=== PATIENT | female | born 1965 | race African-American/Black ===

== ENCOUNTER 2019-11-25 15:40 | Outpatient (CLI) | payer OTHER, SELFPAY ==
--- NOTE | ~2019-11-25 | CT_ITS ---
EXAMINATION: CT brain wo/w con EXAM DATE: 11/25/2019 16:34 INDICATION: Lump of scalp. History breast cancer. TECHNIQUE: Spiral CT of the head was performed without contrast. Axial, coronal and sagittal images were reviewed. The dose-length product (DLP) for this examination was 1059.33 mGy-cm. The exposure was tailored according to patient size, and iterative reconstruction (ASIR) was used as additional do se reduction technique. There is no prior study for comparison. FINDINGS: There is small cystic extra-axial space overlying the right frontal lobe laterally, a benig n finding such as arachnoid cyst or possibly nodular calcified stage of quiescent neurocysticercosis. Adjacent brain parenchyma has normal appearance. There are no areas of abnormal enhancement on the p ost contrast images. There is no acute intraparenchymal hemorrhage. No evidence of intraparenchymal brain mass lesion. No evidence of acute infarction. There is no mass effect or midline shift. The ventricles are normal in size. There are no extra-axial collections. There are no acute calvarial fractures. The orbits are unremarkable. Soft tissue, scalp is unremarkable. The visualized sinuses and mastoid air cells are well aerated. IMPRESSION: 1. Incidental small benign extra-axial cystic lesion. 2. No scalp mass or evidence of metastatic disease. Reviewed, dictated and finalized at location A.
[2019-11-25 16:21] LABS: Estimated Glomerular Filt Rate 47
== END 2019-11-25 15:41 | disposition home or self-care (01) ==
PROVIDERS: PCP Family Medicine; Visit Provider Internal Medicine
DX: C50.411 Malignant neoplasm of upper-outer quadrant of right female breast (principal); Z17.0 Estrogen receptor positive status [ER+]; R22.0 Localized swelling, mass and lump, head
CPT/HCPCS: 36415; 70470; Q9967

== ENCOUNTER 2020-05-11 11:32 | Outpatient (CLI) | payer OTHER, SELFPAY ==
--- NOTE | ~2020-05-11 | MM_ITS ---
EXAMINATION: MM diagnostic brad LT w jeannie HISTORY: No current complaints or physical findings reported. Status post left partial mastectomy for left breast cancer. Status post right complete mastectomy for right breast cancer. TECHNIQUE: ML, MLO and craniocaudal 3-D tomosynthesis images of the left breast were performed and sy nthetic 2-D images were generated. CAD analysis was submitted and interpreted. COMPARISON: 05/09/2019, 04/16/2018, 04/16/2017 left digital mammogram examinations BREAST PARENCHYMAL COMPOSITION: The breasts are heterogeneously dense, which may obscure small masses . FINDINGS: Stable architectural distortion and retraction post left partial mastectomy for breast canc er. No interval suspicious mass or new architectural distortion or new retraction is evident. No malignan t calcification. IMPRESSION: 1. Status post left partial mastectomy for breast cancer; no significant change since 04/16/2017 2. Routine mammographic screening follow-up is recommended. BI-RADS Category 2: Benign finding(s). Reviewed, dictated and finalized at location A. 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
--- NOTE | ~2020-05-11 | US_ITS ---
US breast RT complete DATE: 05/11/2020 12:41 INDICATION: Status post right complete mastectomy for right breast cancer TECHNIQUE: High-resolution ultrasound imaging of the right breast COMPARISON: 05/09/2019, 04/16/2018, 04/08/2017 complete right breast ultrasound examination FINDINGS: Right breast implant is noted. No suspicious mass or shadowing is evident. IMPRESSION: BI-RADS Category 1: Negative Reviewed, dictated and finalized at Location A. Reviewed, dictated and finalized at location A. TO PICKER
== END 2020-05-11 11:33 | disposition home or self-care (01) ==
LOC: ANHIMG 11:34
PROVIDERS: Family Provider Surgery; PCP Family Medicine; Visit Provider Internal Medicine
DX: Z12.31 Encounter for screening mammogram for malignant neoplasm of breast (principal); Z85.3 Personal history of malignant neoplasm of breast; Z87.898 Personal history of other specified conditions; C50.411 Malignant neoplasm of upper-outer quadrant of right female breast; Z17.0 Estrogen receptor positive status [ER+]
CPT/HCPCS: 76641; 77061; 77065; G0279

== ENCOUNTER 2020-08-29 17:07 | Outpatient (CLI) | payer OTHER, SELFPAY ==
--- NOTE | ~2020-08-29 | US_ITS ---
EXAMINATION: US thyroid DATE: 08/29/2020 17:39 INDICATION: Palpable thyroid nodule. TECHNIQUE: Multiple ultrasound images of the thyroid were obtained. COMPARISON: None. FINDINGS: The right thyroid lobe measures 5.0 x 1.0 x 1.3 cm. The left thyroid lobe measures 5.4 x 1.2 x 1.8 c m. There is normal echotexture and echogenicity throughout the thyroid gland. No discrete nodules id entified. Normal vascular flow is present. IMPRESSION: 1. Normal thyroid. Reviewed, dictated and finalized at location B. IMPRESSION: 1. Normal thyroid.
== END 2020-08-29 17:08 | disposition home or self-care (01) ==
PROVIDERS: PCP Family Medicine
DX: C50.411 Malignant neoplasm of upper-outer quadrant of right female breast (principal); Z17.0 Estrogen receptor positive status [ER+]
CPT/HCPCS: 76536

== ENCOUNTER 2020-10-11 15:15 | Outpatient (RCR) | payer OTHER, SELFPAY ==
--- NOTE | 2020-09-19 14:38 | PTOPEVAL ---
PHYSICAL THERAPY EVALUATION AND PLAN OF CARE 09-19-20 Thank you for referring Emmett Gu to [facility], for the diagnosis of lymphedema.? She is scheduled to be seen for therapy? 2 x/week for 3 weeks. Please review, sign, date and return this plan of care ANGELA. I agree with and certify that the following plan of care is medically necessary. 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 Activity of Daily Living Ability Independent Indoor/Home Mobility Independent Community Mobility Independent Stairs Ability Independent Functional Cognition (Planning, Shopping Independent , Taking Medications) Cooking Yes Cleaning Yes Laundry Yes Shopping Yes Driving Yes Home Setting Mobility Assistive Devices (Used Last 3 None Months) Comments Additional Prior Level of Function working from home now; Comments computer set up was not good- have changed and better work station; Pain Assessment Timing of Pain Assessment Timing of Pain Assessment Assessment Self Report Self Report Pain Level 0 Pain Score Pain Score 0: Self Report Upper Extremity Range of Motion General Upper Extremity Range of Motion Reason Not Measured WNL/Left,WNL/Right Gross Upper Extremity Range of Motion no pain with active R or L Comments shoulder, elbow, wrist- ranges WNL; cervical active ROM WNL and no pain Lymphedema Evaluation Lymphedema Evaluation Lymphedema History Cancer,Secondary Lympedemea History Comments gradual increase in R arm swelling in April after working from home, computer set up not ergonomically correct and not sitting upright; and was sleeping on her R side; she has i
--- NOTE | 2020-10-09 13:50 | PCPTNOTE ---
Pt. no showed, no call for todays' appt. called and left a massage on voice mail to remind pt of next appt on at 3:15.
--- NOTE | 2020-10-09 15:22 | PCPTNOTE ---
addendum to note today. pt was here and was not called until 25 minutes after appt. Pt stated she arrived at 1:37. pt received 40 min treatment. I apologized for the mistake. .
--- NOTE | 2020-10-11 15:50 | PTOPEVAL ---
PHYSICAL THERAPY DISCHARGE 10-11-20 Refer to the clinical summary below, for her status with today's discharge. The PT goals were achieved; she will be discharged at this time. Thank you for referring Emmett Gu to [facility].? Please review, sign, date and return this Discharge ANGELA. I agree with and certify that the following plan of care is medically necessary. Referring Physician Date Attending Provider: Syed Jin MD, PhD Document 10/11/20 15:15 SOLIS (Rec: 10/11/20 15:50 SOLIS [id number]) Assessment Status Discharge Subjective Information Emmett reports: swelling is Query Text:As Reported By Patient/ less, not pulling down on R Family side of shirt as much; chest is more comfortable and not as tight; using swell pad and compression bra; doing my massage every day in the shower and doing OK with it; Pain Assessment Timing of Pain Assessment Timing of Pain Assessment Assessment Self Report Self Report Pain Level 0 Pain Score Pain Score 0: Self Report Upper Extremity Range of Motion General Upper Extremity Range of Motion Gross Upper Extremity Range of Motion active ROM of shoulders and Comments trunk WNL and without any pain or tightness reported; Lymphedema Evaluation Skin Inspection Location Left Breast,Left Anterior Lower Quadrant,Left Anterior Upper Quadrant,Left Posterior Lower Quadrant,Left Posterior Upper Quadrant,Right Breast, Right Anterior Lower Quadrant, Right Anterior Upper Quadrant, Right Posterior Lower Quadrant ,Right Posterior Upper Quadrant Lymphedema Stage II Skin Inspection Comment in standing: minimal visible edema over R upper-lateral trunk; no edema over R or L UE palpation: R side: port site without adhesions distal to incision; axilla without any adhesions; minimal adhesions over upper -lateral trunk; no adhesions over lateral aspect of horizontal scar; no tenderness reported; L side: no tenderness or fibrosis over pec or node excision site; some fibrosis
== END 2020-10-12 08:13 | disposition home or self-care (01) ==
LOC: ANHPT 15:15
PROVIDERS: PCP Family Medicine
DX: I89.0 Lymphedema, not elsewhere classified (principal); C50.411 Malignant neoplasm of upper-outer quadrant of right female breast; Z17.0 Estrogen receptor positive status [ER+]; Z90.11 Acquired absence of right breast and nipple
CPT/HCPCS: 97140; 97161

== ENCOUNTER 2021-05-13 10:40 | Outpatient (CLI) | payer BC, SELFPAY ==
--- NOTE | ~2021-05-13 | MM_ITS ---
EXAMINATION: MM screening brad LT w jeannie HISTORY: Screening left mammogram, history of right mastectomy TECHNIQUE: Craniocaudal and mediolateral oblique 3-D tomosynthesis images were obtained and synthetic 2-D images were generated. CAD analysis was submitted and interpreted. COMPARISON: 05/11/2020, 05/09/2019, 04/16/2018 BREAST PARENCHYMAL COMPOSITION: The breasts are heterogeneously dense, which may obscure small masses . FINDINGS: There are stable lumpectomy changes in the left breast. There is no evidence of suspicious mass, calcification, or architectural distortion to suggest malignancy. There has been no suspicious interval change. IMPRESSION: 1. No mammographic evidence of malignancy. 2. Recommend routine screening mammography in one year. BI-RADS Category 2: Benign finding(s). Reviewed, dictated and finalized at location A. 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
--- NOTE | ~2021-05-13 | US_ITS ---
EXAMINATION: US breast RT complete HISTORY: Patient with history of right mastectomy with implant reconstruction presents for right m[address] [facility] screening ultrasound TECHNIQUE: Complete right breast ultrasound is performed. COMPARISON: 05/11/2020, 05/09/2019 FINDINGS: No suspicious cystic or solid sonographically detected masses identified in the right breas t. IMPRESSION: No sonographic evidence of malignancy. BI-RADS Category 1: Negative Reviewed, dictated and finalized at location A. 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
== END 2021-05-13 10:41 | disposition home or self-care (01) ==
PROVIDERS: PCP Family Medicine
DX: Z12.31 Encounter for screening mammogram for malignant neoplasm of breast (principal); Z90.11 Acquired absence of right breast and nipple
CPT/HCPCS: 76641; 77063; 77067

== ENCOUNTER 2021-07-31 12:43 | Outpatient (CLI) | payer BC, SELFPAY ==
--- NOTE | ~2021-07-31 | DEXA_ITS ---
Bone Density Report Name: YESICA CORDOVA Age: 55 Sex: Female Ethnicity: Black Date of : 1965 Indication: postmenopausal; screening for osteoporosis; cancer; Referring Provider: RAYMUNDO GUTIERREZ NP Study: Bone densitometry was performed. Exam Date: July 31, 2021 Accession number: [id number] Bone Density: Region BMD T-score Z-score Classification AP Spine(L1, L2, L3) 0.957 -0.6 -0.1 Normal Femoral Neck (Left) 0.692 -1.4 -0.9 Osteopenia Total Hip (Left) 0.909 -0.3 -0.1 Normal Femoral Neck (Right) 0.668 -1.6 -1.1 Osteopenia Total Hip (Right) 0.881 -0.5 -0.3 Normal Total Hip Mean 0.895 -0.4 -0.2 Normal World Health Organization criteria for BMD impression classify patients as: Normal (T-score at or above -1.0), Osteopenia (T-score between -1.0 and -2.5), or Osteoporosis (T-score at or below -2.5). 10-year Fracture Risk(1): Major Osteoporotic Fracture 3.4% Hip Fracture 0.3% Reported Risk Factors: [place] (Black), Neck BMD=0.668, BMI=26.9 (1) FRAX(R) Version 3.08. Fracture probability calculated for an untreated patient. Fracture probability may be lower if the patient has received treatment. Previous Exams: Region Exam Age BMD T-score BMD Change BMD Change Date g/cm2 vs Baseline vs Previous AP Spine(L1, L2, L3) 07/31/2021 55 0.957 -0.6 -0.008(-0.8%) -0.008(-0.8%) 12/22/2017 52 0.965 -0.5 Total Hip(Left) 07/31/2021 55 0.909 -0.3 -0.006(-0.7%) -0.006(-0.7%) 12/22/2017 52 0.915 -0.2 Total Hip(Right) 07/31/2021 55 0.881 -0.5 -0.026(-2.9%) -0.026(-2.9%) 12/22/2017 52 0.907 -0.3 *Denotes significance at 95% confidence level, LSC for AP Spine = 0.022 g/cm2, LSC for Total Hip = 0.027 g/cm2 Clinical Information Provided by Patient: Has used the following medications: Vitamin D Has the following medical conditions: Cancer Patient maximum height was 62 Menopause Age: 49 No regular weight bearing exercise Onset of menses at age 12 Number of children 0 Impression: The patient has low bone mass, based on the Right Femoral Neck T-score. The patient has an estimated ten-year risk of hip fracture of 0.3% and an estimated ten-year risk of major fracture of 3.4%, based on the WHO FRAX algorithm. No significant bone loss was observed. Discussion: BONE DENSITY IS LOW AT ONE OR MORE SKELETAL SITES. This patient's lowest T-score is low at one or more skeletal sites. It meets the World Health Organization's (WHO)
== END 2021-07-31 12:44 | disposition home or self-care (01) ==
LOC: ANHIMG 12:46
PROVIDERS: PCP Family Medicine
DX: Z78.0 Asymptomatic menopausal state (principal); M85.89 Other specified disorders of bone density and structure, multiple sites
CPT/HCPCS: 77080

== ENCOUNTER 2022-03-17 00:50 | Day surgery (SDC) | payer BC, SELFPAY ==
[2022-03-07 14:10] VITALS: BMI 27.0
--- NOTE | 2022-03-17 10:38 | WPDANESEPPF ---
Anes - Initial Pre Proc Eval Procedure: Operation Date: 03/17/22 14:45 Proposed Procedures p Screening Colonoscopy - Kristopher Galindo MD Date/Time: 03/17/22 10:38 Surgeon: Kristopher Galindo MD Pre Op Diagnosis: neoplasm screening, fam hx colon ca Patient Data Age: 56 Gender: F Height: 1.57 m Weight: 67 kg Allergies Allergy/AdvReac Type Severity Reaction Status Date / Time cetirizine Allergy Unknown Hives Verified 03/17/22 13:11 hydroxyzine Allergy Unknown Hives Verified 03/17/22 13:11 Iodinated Contrast Media Allergy Unknown Hives Verified 03/17/22 13:11 iodine Allergy Unknown Hives Verified 03/17/22 13:11 ranitidine Allergy Unknown Hives Verified 03/17/22 13:11 codeine AdvReac Unknown hallucinati Verified 03/17/22 13:11 on hydrocodone AdvReac Unknown Hallucinati Verified 03/17/22 13:11 ng morphine AdvReac Unknown Hallucinati Verified 03/17/22 13:11 ng Home Medications Medication Instructions Recorded Confirmed Type anastrozole 1 mg tablet 1 mg PO DAILY 04/07/19 03/17/22 History cholecalciferol (vitamin D3) 25 25 mcg PO DAILY 05/07/20 03/17/22 History mcg (1,000 unit) capsule omega 3-dha 120 mg-epa 180 mg-fish 1 cap PO DAILY 05/07/20 03/17/22 History oil 600 mg capsule ([place]reme [place]-3) amlodipine 10 mg tablet 10 mg PO DAILY #90 tabs 12/31/21 03/17/22 Rx multivitamin with minerals-folic 1 tablet PO DAILY 03/07/22 03/17/22 History acid 0.4 mg tablet Patient hx anesthesia problems: none Family hx anesthesia problems: none Results Review: All pre-operative results and documents have been reviewed as part of the pre-operative evaluation. [facility] Past Medical History Medical History Essential (primary) hypertension History of breast cancer Surgical History Surgical History H/O foot surgery H/O right mastectomy History of breast reconstruction Status post left breast lumpectomy Family History Family History Father Carcinoma of colon Prediabetes Mother Mixed hyperlipidemia Grandparent Acute myocardial infarction Other Cerebrovascular accident Diabetes mellitus Family history of allergic disorder Family history of cardiovascular disease Family history of lung cancer Hypertension Social History Social History Social History: Single Smoking status: Never smoker Second hand tobacco smoke exposure: No Alcohol intake: current Alcohol use details: 2 drinks monthly Substance use: never Substance use type: does not use Living arrangements: alone Gender identity (if verbalized by the patient): Female Sexual Orientation (if Verbalized by the Patient): Straight or Heterosexual Spiritual care concerns: No Anes - Eval Final PreProcedure Day of Procedure 03/17/22 10:38 Patient weight: obese Heart: regular rate and rhythm Lungs: clear to auscultation and normal air movement Airway: Mallampati scale class II Neurological: alert and oriented Last oral intake: >/= 8 hours ASA classification: III Emergent: no Anesthetic plan: proceed Anesthesia type and monitoring: general GIVS Results Review: All pre-operative results and documents have been reviewed as part of the pre-operative evaluation. Informed Consent: The patient's anesthetic plan and its attendant risks and benefits were discussed with the patient/family/POA. Questions were solicited and answers provided to the satisfaction of the patient/family/POA.
[2022-03-17 13:14] VITALS: BP 136/81; PULSE 86; RESP 16; TEMP 36.7; O2SAT 98
--- NOTE | 2022-03-17 13:21 | PM.HPGS ---
History of Present Illness History of Present Illness Consent: Risks, benefits, and alternatives have been discussed and questions answered. Patient agrees to proceed with procedure. Chief complaint: neoplasm screening, fam hx colon ca Narrative: Emmett Gu is a 56 year old female Referred for colon cancer screening. She has a family history of colon cancer. Her father had colon cancer. Review of Systems Review of Systems: All systems reviewed & are unremarkable except as noted in HPI and below PMFSH Past Medical History Medical History Essential (primary) hypertension History of breast cancer Surgical History Surgical History H/O foot surgery H/O right mastectomy History of breast reconstruction Status post left breast lumpectomy Family History Family History Father Carcinoma of colon Prediabetes Mother Mixed hyperlipidemia Grandparent Acute myocardial infarction Other Cerebrovascular accident Diabetes mellitus Family history of allergic disorder Family history of cardiovascular disease Family history of lung cancer Hypertension Social History Social History Social History: Single Smoking status: Never smoker Second hand tobacco smoke exposure: No Alcohol intake: current Alcohol use details: 2 drinks monthly Substance use: never Substance use type: does not use Living arrangements: alone Gender identity (if verbalized by the patient): Female Sexual Orientation (if Verbalized by the Patient): Straight or Heterosexual Spiritual care concerns: No Meds Home Medications and Allergies Home Medications Medication Instructions Recorded Confirmed Type anastrozole 1 mg tablet 1 mg PO DAILY 04/07/19 03/17/22 History cholecalciferol (vitamin D3) 25 25 mcg PO DAILY 05/07/20 03/17/22 History mcg (1,000 unit) capsule omega 3-dha 120 mg-epa 180 mg-fish 1 cap PO DAILY 05/07/20 03/17/22 History oil 600 mg capsule (Extreme [place]-3) amlodipine 10 mg tablet 10 mg PO DAILY #90 tabs 12/31/21 03/17/22 Rx multivitamin with minerals-folic 1 tablet PO DAILY 03/07/22 03/17/22 History acid 0.4 mg tablet Allergies Allergy/AdvReac Type Severity Reaction Status Date / Time cetirizine Allergy Unknown Hives Verified 03/17/22 13:11 hydroxyzine Allergy Unknown Hives Verified 03/17/22 13:11 Iodinated Contrast Media Allergy Unknown Hives Verified 03/17/22 13:11 iodine Allergy Unknown Hives Verified 03/17/22 13:11 ranitidine Allergy Unknown Hives Verified 03/17/22 13:11 codeine AdvReac Unknown hallucinati Verified 03/17/22 13:11 on hydrocodone AdvReac Unknown Hallucinati Verified 03/17/22 13:11 ng morphine AdvReac Unknown Hallucinati Verified 03/17/22 13:11 ng Vital Signs Vital Signs - 24 hr 03/17/22 13:14 Temperature 36.7 C Pulse Rate 86 Respiratory Rate 16 Blood Pressure 136/81 Pulse Oximetry 98 Oxygen Delivery Room Air Exam Const: General: alert Orientation/consciousness: patient oriented x3 Resp: Auscultation: clear to auscultation bilaterally Cardio: Rhythm: regular rhythm GI: GI Palp: Yes Soft to palpation and No Tenderness to palpation present (GI) Neuro: General: patient oriented x3 Assessment and Plan Assessment and plan (1) Colon cancer screening: Code(s): Z12.11 - Encounter for screening for malignant neoplasm of colon Status: Acute Assessment and Plan: Colonoscopy with possible biopsy or polypectomy or cautery or injection of substances.
[2022-03-17] MEDS: LACTATED RINGERS 1,000 ML 150 ML IV CONT (13:25)
[2022-03-17 14:20] VITALS: BP 104/64; PULSE 74; RESP 20; O2SAT 92
[2022-03-17 14:30] VITALS: BP 95/55; PULSE 74; RESP 15; O2SAT 99
[2022-03-17 14:40] VITALS: BP 110/68; PULSE 63; RESP 20; O2SAT 99
== END 2022-03-17 15:02 | disposition home or self-care (01) ==
PROVIDERS: PCP Family Medicine; Visit Provider Internal Medicine Gastroenterology
PROC: 0DJD8ZZ Inspection of Lower Intestinal Tract, Via Natural or Artificial Opening Endoscopic (ICD-10-PCS; CPT 45378; principal; 2022-03-17 14:45)
DX: Z12.11 Encounter for screening for malignant neoplasm of colon (principal); Z80.0 Family history of malignant neoplasm of digestive organs; I10 Essential (primary) hypertension; Z85.3 Personal history of malignant neoplasm of breast; Z79.811 Long term (current) use of aromatase inhibitors; Z90.13 Acquired absence of bilateral breasts and nipples; E66.9 Obesity, unspecified
CPT/HCPCS: 45378; J2704; J7120

== ENCOUNTER 2022-07-15 09:04 | Outpatient (CLI) | payer BC, SELFPAY ==
--- NOTE | ~2022-07-15 | MM_ITS ---
EXAMINATION: MM screening brad LT w jeannie HISTORY: Screening TECHNIQUE: Craniocaudal and mediolateral oblique 3-D tomosynthesis images were obtained and synthetic 2-D images were generated. CAD analysis was submitted and interpreted. COMPARISON: Comparison to multiple prior studies sequentially, with oldest reviewed study dated 03/21. BREAST PARENCHYMAL COMPOSITION: The breasts are heterogeneously dense, which may obscure small masses FINDINGS: There is a new focal asymmetry inferiorly in the left breast with associated architectural distortion. There are no suspicious calcifications. IMPRESSION: 1. New focal left breast asymmetry inferiorly with associated architectural distortion. 2. Additional mammographic views and possible breast ultrasound are recommended. BI-RADS Category 0: Incomplete: Needs additional imaging evaluation. Reviewed, dictated and finalized at location A. IMPRESSION: 1. New focal left breast asymmetry inferiorly with associated architectural dis tortion. 2. Additional mammographic views and possible breast ultrasound are recommended . BI-RADS Category 0: Incomplete: Needs additional imaging evaluation.
== END 2022-07-15 09:05 | disposition home or self-care (01) ==
DX: Z12.31 Encounter for screening mammogram for malignant neoplasm of breast (principal); R92.8 Other abnormal and inconclusive findings on diagnostic imaging of breast
CPT/HCPCS: 77063; 77067

== ENCOUNTER 2022-08-19 11:19 | Outpatient (CLI) | payer BC, SELFPAY ==
--- NOTE | ~2022-08-19 | MM_ITS ---
EXAMINATION: MM diagnostic brad LT w jeannie HISTORY: Left breast asymmetry on screening mammogram TECHNIQUE: Additional 3-D tomosynthesis images of the left breast were performed and synthetic 2-D im ages were generated. CAD analysis was submitted and interpreted. COMPARISON: 07/07/2022, 05/13/2021, 05/11/2020, 05/09/2019 FINDINGS: There is a return to baseline fibroglandular appearance with spot compression of the left b reast in the area questioned on screening mammogram. Stable lumpectomy changes are noted in the lower breast. No suspicious calcification is identified. IMPRESSION: 1. No mammographic evidence of malignancy. 2. Recommend routine screening mammography in one year. BI-RADS Category 2: Benign finding(s). Reviewed, dictated and finalized at location A.
== END 2022-08-19 11:20 | disposition home or self-care (01) ==
DX: R92.8 Other abnormal and inconclusive findings on diagnostic imaging of breast (principal); C50.611 Malignant neoplasm of axillary tail of right female breast; Z17.0 Estrogen receptor positive status [ER+]
CPT/HCPCS: 77061; 77065; G0279

== ENCOUNTER 2022-11-04 18:48 | Emergency (ER) | payer BC, SELFPAY ==
--- NOTE | 2022-11-04 18:51 | ED.EXTPRO ---
HPI - Extremity Problem General Chief complaint: Extremity Injury, Upper Stated complaint: left arm pain Time Seen by Provider: 11/04/22 18:51 Source: patient Mode of arrival: ambulatory Limitations: no limitations History of Present Illness HPI Narrative: Emmett is a 56-year-old female patient presenting to the clinic today with complaints of left shoulder pain times 1 day. She reports symptoms just started today. She has not taken anything for pain. States that she directed acquired over the weekend and now has anterior shoulder pain that is radiating into her upper arm. Related Data Home Medications Medication Instructions Recorded Confirmed anastrozole 1 mg tablet 1 mg PO DAILY 04/07/19 11/04/22 cholecalciferol (vitamin D3) 25 25 mcg PO DAILY 05/07/20 11/04/22 mcg (1,000 unit) capsule omega 3-dha 120 mg-epa 180 mg-fish 1 cap PO DAILY 05/07/20 11/04/22 oil 600 mg capsule (Extreme [place]-3) multivitamin with minerals-folic 1 tablet PO DAILY 03/07/22 11/04/22 acid 0.4 mg tablet Allergies Allergy/AdvReac Type Severity Reaction Status Date / Time cetirizine Allergy Unknown Hives Verified 11/04/22 19:04 hydroxyzine Allergy Unknown Hives Verified 11/04/22 19:04 Iodinated Contrast Media Allergy Unknown Hives Verified 11/04/22 19:04 iodine Allergy Unknown Hives Verified 11/04/22 19:04 ranitidine Allergy Unknown Hives Verified 11/04/22 19:04 codeine AdvReac Unknown hallucinati Verified 11/04/22 19:04 on hydrocodone AdvReac Unknown Hallucinati Verified 11/04/22 19:04 ng morphine AdvReac Unknown Hallucinati Verified 11/04/22 19:04 ng Review of Systems Review of Systems: Pertinent positives per HPI. Patient denies any fever, chills, rash, headache, visual changes, dizziness, cough, runny nose, sore throat, shortness of breath, chest pain, palpitations, nausea, vomiting, diarrhea, constipation, abdominal pain, or any urinary issues. PMF Past Medical History Medical History Essential (primary) hypertension History of breast cancer Surgical History Surgical History H/O foot surgery H/O right mastectomy History of breast reconstruction Status post left breast lumpectomy Family History Family History Father Carcinoma of colon Prediabetes Mother Mixed hyperlipidemia Grandparent Acute myocardial infarction Other Cerebrovascular accident Diabetes mellitus Family history of allergic disorder Family history of cardiovascular disease Family history of lung cancer Hypertension Social History Social History Social History: Single Smoking status: Never smoker Second hand tobacco smoke exposure: No Alcohol intake: current Alcohol use details: 2 drinks monthly Substance use: never Substance use type: does not use Living arrangements: alone Occupation/Education: retired Gender identity (if verbalized by the patient): Female Sexual Orientation (if Verbalized by the Patient): Straight or Heterosexual Spiritual care concerns: No Comments At the time of my signature, I reviewed and agree with the nursing past medical, surgical, social, and family history. There is no relevant family history pertinent to the patient complaint. Exam Narrative: General: Well-developed, well nourished, in no apparent distress Head: Normocephalic, atraumatic. Cardio: Regular rate and rhythm, s1 and s2 normal, no murmur appreciated. Resp: Clear to auscultation bilaterally, no rhonchi, rales, wheezing or rubs. Musculoskeletal: No deformity, tender to palpation over the anterior shoulder, no pain with empty can/full can testing, mild discomfort with Chavira test, no axilla lymphadenopathy, grossly normal range of motion, muscle streng
[2022-11-04 19:01] VITALS: BP 129/72; PULSE 86; RESP 16; TEMP 37.3; O2SAT 99
[2022-11-04 19:04] VITALS: BP 129/72; PULSE 86; RESP 16; TEMP 37.3; O2SAT 99
== END 2022-11-04 19:10 | disposition home or self-care (01) ==
PROVIDERS: Emergency Provider Nurse Practitioner Family; PCP Emergency Medicine
DX: M25.512 Pain in left shoulder (principal); I10 Essential (primary) hypertension; Z85.3 Personal history of malignant neoplasm of breast; Z90.13 Acquired absence of bilateral breasts and nipples
CPT/HCPCS: 99213; G0463

== ENCOUNTER 2022-12-09 15:28 | Outpatient (CLI) | payer BC, SELFPAY ==
--- NOTE | ~2022-12-09 | US_ITS ---
US breast RT complete DATE: 12/09/2022 15:54 INDICATION: Yearly screening and postmastectomy reconstructed right breast TECHNIQUE: Real-time imaging of complete right breast area COMPARISON: 05/09/2021, 05/11/2020, 05/09/2019 right complete breast ultrasound examinations FINDINGS: No suspicious mass or shadowing, cyst or other significant sonographic abnormality is detec dipak. IMPRESSION: No sonographic evidence of malignancy in this post mastectomy reconstructed right breast BI-RADS Category 1: Negative Reviewed, dictated and finalized at [facility]. Reviewed, dictated and finalized at location A. IMPRESSION: No sonographic evidence of malignancy in this post mastectomy recon structed right breast BI-RADS Category 1: Negative
== END 2022-12-09 15:29 | disposition home or self-care (01) ==
PROVIDERS: PCP Family Medicine
DX: Z98.82 Breast implant status (principal)
CPT/HCPCS: 76641

== ENCOUNTER 2023-07-13 12:27 | Outpatient (CLI) | payer BC, SELFPAY ==
--- NOTE | ~2023-07-13 | MR_ITS ---
MR breast BI wo/w con 07/15/2023 10:51 CDT INDICATION: History of estrogen receptor positive breast cancer. History of right mastectomy with jennifer icone implant. TECHNIQUE: MRI of the breasts perform using standard protocol pre-and post IV contrast with the follo wing sequences: Axial T2 STIR, axial T1, axial vibrant T1 with fat suppression precontrast and multip hasic postcontrast. 13 cc of MultiHance administered intravenously COMPARISON: Comparison to multiple prior studies sequentially, with oldest reviewed study dated 05/11. FINDINGS: There are no abnormalities on the precontrast sequences. There is a right breast implant. T here is minimal background parenchymal enhancement. No enhancing lesions following contrast administ ration. No areas of enhancement meeting threshold criteria on CAD analysis. No evidence of signal a bnormalities in the axillary or internal mammary node distributions. LEFT BREAST: No signal abnormalities on precontrast sequences. There is minimal background parenchym al enhancement. No enhancing lesions following contrast administration. No areas of enhancement me eting threshold criteria on CAD analysis. No evidence of signal abnormalities in the axillary or in ternal mammary node distributions.] IMPRESSION: 1: Right breast: Negative. No evidence of malignancy. BI-RADS category 1. Recommend annual mammo graphy follow-up. 2: Left breast: Negative. No evidence of malignancy. BI-RADS category 1. Recommend annual mammogr aphy follow-up. Follow-up MRI may be useful for supplementing mammographic evaluation as clinically indicated. Reviewed, dictated and finalized at location B. IMPRESSION: 1: Right breast: Negative. No evidence of malignancy. BI-RADS category 1. Recommend annual mammography follow-up. 2: Left breast: Negative. No evidence of malignancy. BI-RADS category 1. Re commend annual mammography follow-up. Follow-up MRI may be useful for supplementing mammographic evaluation as clinic ally indicated.
== END 2023-07-13 12:28 | disposition home or self-care (01) ==
PROVIDERS: PCP Family Medicine
DX: Z12.39 Encounter for other screening for malignant neoplasm of breast (principal); C50.411 Malignant neoplasm of upper-outer quadrant of right female breast; Z17.0 Estrogen receptor positive status [ER+]; C50.611 Malignant neoplasm of axillary tail of right female breast; Z79.811 Long term (current) use of aromatase inhibitors; Z85.3 Personal history of malignant neoplasm of breast; Z91.89 Other specified personal risk factors, not elsewhere classified; Z98.82 Breast implant status
CPT/HCPCS: 77049; A9577; C8908

== ENCOUNTER 2023-11-19 13:53 | Outpatient (CLI) | payer BC, SELFPAY ==
--- NOTE | ~2023-11-19 | MM_ITS ---
EXAMINATION: MM screening brad LT w jeannie HISTORY: Screening TECHNIQUE: Craniocaudal and mediolateral oblique 3-D tomosynthesis images were obtained and synthetic 2-D images were generated. CAD analysis was submitted and interpreted. COMPARISON: Comparison to multiple prior studies sequentially, with oldest reviewed study dated 03/21. BREAST PARENCHYMAL COMPOSITION: Dense: The breasts are heterogeneously dense, which may obscure small masses FINDINGS: Stable architectural distortion in the left breast, consistent with prior lumpectomy. There is no evidence of suspicious mass, calcification, or architectural distortion to suggest malignancy in the left breast. There has been no suspicious interval change. IMPRESSION: 1. No mammographic evidence of malignancy. 2. Recommend routine screening mammography in one year. BI-RADS Category 2: Benign finding(s). Reviewed, dictated and finalized at location B.
--- NOTE | ~2023-11-19 | DEXA_ITS ---
Bone Density Report Name: YESICA CORDOVA Age: 57 Sex: Female Ethnicity: Black Date of : 1965 Indication: postmenopausal; screening for osteoporosis; history of glucocorticoids; cancer; Referring Provider: UNKNOWN, UNKNOWN Study: Bone densitometry was performed. Exam Date: November 19, 2023 Accession number: [id number] Bone Density: Region BMD T-score Z-score Classification AP Spine(L1-L4) 0.818 -2.1 -1.5 Osteopenia Femoral Neck (Left) 0.693 -1.4 -0.8 Osteopenia Total Hip (Left) 0.829 -0.9 -0.5 Normal Femoral Neck (Right) 0.656 -1.7 -1.0 Osteopenia Total Hip (Right) 0.927 -0.1 0.1 Normal Total Hip Mean 0.878 -0.5 -0.2 Normal World Health Organization criteria for BMD impression classify patients as: Normal (T-score at or above -1.0), Osteopenia (T-score between -1.0 and -2.5), or Osteoporosis (T-score at or below -2.5). 10-year Fracture Risk(1): Major Osteoporotic Fracture 6.3% Hip Fracture 0.7% Reported Risk Factors: [place] (Black), Neck BMD=0.656, BMI=26.1, glucocorticoids (1) FRAX(R) Version 3.08. Fracture probability calculated for an untreated patient. Fracture probability may be lower if the patient has received treatment. Clinical Information Provided by Patient: Has taken Glucocorticoids Has used the following medications: Vitamin D Has the following medical conditions: Cancer Patient maximum height was 62 Menopause Age: 49 No regular weight bearing exercise Drinks caffeinated beverages Onset of menses at age 12 Number of children 0 Impression: The patient has low bone mass, based on the Total Spine T-score. The patient has an estimated ten-year risk of hip fracture of 0.7% and an estimated ten-year risk of major fracture of 6.3%, based on the WHO FRAX algorithm. The patient has risk factors, including: history of glucocorticoid therapy. Discussion: BONE DENSITY IS LOW AT ONE OR MORE SKELETAL SITES. This patient's lowest T-score is low at one or more skeletal sites. It meets the World Health Organization's (WHO) criteria for ?low bone mass? (T-score between -1.0 and -2.5). The patient's 10-year risk of fracture as calculated by FRAX is less than the threshold where pharmacological therapy is recommended by the National Osteoporosis Foundation (NOF). However, all treatment decisions require clinical judgment and consideration of individual patient factors, including patient preferences, comorbidities, previous drug use, risk factors not captured in the FRAX model (e.g., frailty, falls, vitamin D deficiency, increased bone turnover, interval significant decline in bone density) and possible under or overestimation of fracture risk by FRAX. The patient should follow a healthful lifestyle (good nutrition with adequate calcium and vitamin D, and appropriate weight-bearing exercise). Follow-Up: Consider repeating this study in 2 to 3 years to reassess th
== END 2023-11-19 13:54 | disposition home or self-care (01) ==
PROVIDERS: PCP Family Medicine
DX: C50.611 Malignant neoplasm of axillary tail of right female breast (principal); Z17.0 Estrogen receptor positive status [ER+]; Z79.811 Long term (current) use of aromatase inhibitors; Z85.3 Personal history of malignant neoplasm of breast; Z91.89 Other specified personal risk factors, not elsewhere classified; Z98.82 Breast implant status; Z12.31 Encounter for screening mammogram for malignant neoplasm of breast; M85.88 Other specified disorders of bone density and structure, other site; M85.852 Other specified disorders of bone density and structure, left thigh; M85.851 Other specified disorders of bone density and structure, right thigh
CPT/HCPCS: 77063; 77067; 77080

== ENCOUNTER 2024-04-18 14:16 | Outpatient (CLI) | payer BC, SELFPAY ==
--- NOTE | ~2024-04-18 | XR_ITS ---
HISTORY: M25.511 - Pain in right shoulder COMPARISON: None TECHNIQUE: 3 views of the right shoulder were performed FINDINGS: No acute fracture. The glenohumeral and acromioclavicular joint space is maintained The visualized portion of the adjacent right lung is clear. The humeral head is well seated within the glenoid fossa. IMPRESSION: No acute fracture or anterior dislocation. Reviewed, dictated and finalized at location A. ETTER OPERATOR
== END 2024-04-18 14:17 | disposition home or self-care (01) ==
PROVIDERS: PCP Family Medicine; Visit Provider Student in an Organized Health Care Education/Training Program
DX: M25.511 Pain in right shoulder (principal)
CPT/HCPCS: 73030

== ENCOUNTER 2024-12-05 10:53 | Outpatient (CLI) | payer BC, SELFPAY ==
--- NOTE | ~2024-12-05 | MM_ITS ---
EXAMINATION: MM screening brad LT w jeannie HISTORY: Screening mammogram TECHNIQUE: Craniocaudal and mediolateral oblique 3-D tomosynthesis images were obtained and synthetic 2-D images were generated. CAD analysis was submitted and interpreted. COMPARISON: 11/19/2023, 07/15/2022, 05/13/2021 BREAST PARENCHYMAL COMPOSITION:Dense: The breasts are heterogeneously dense, which may obscure small masses. FINDINGS: Stable postoperative distortion of the subareolar left breast. No suspicious mass, calcific ation, or architectural distortion are identified in either breast to suggest malignancy. There has b een no suspicious interval change. IMPRESSION: No mammographic evidence of malignancy. Recommend routine screening mammography in one year. BI-RADS Category 2: Benign finding(s). Reviewed, dictated and finalized at [facility].
--- NOTE | ~2024-12-05 | US_ITS ---
EXAMINATION TYPE: US breast RT complete COMPARISON: NONE REASON FOR STUDY: implant, hx of rt mastectomy TECHNIQUE: Sonographic evaluation of the right breast was performed. INTERPRETATION: No suspicious mass lesion seen sonographically. Small morphologically normal lymph nodes are present the right axilla. Right breast implant present, without distinct evidence for rupture. IMPRESSION: Negative BI-RADS CATEGORY: BI-RADS 1: Negative Reviewed, dictated and finalized at location .
--- OUTSIDE RECORDS SUMMARY | 2024-12-05 12:00 | XMS_ITS | Encounter Summary ---
Author Organization [facility] Address [address] [place] [address] Phone Care Team Providers Care Compliance Assistant Name Role Phone Mary Mckeon MD Primary Care Provider Marion Covarrubias NP Unavailable [phone] Homer Cochran MD Unavailable [phone] Mckinley Alba DO Unavailable [phone] Encounter Details Date Type Department Care Team (Latest Contact Info) Description 12/09/2022 Orders Only [facility] Scanning, Provider Social History Tobacco Use Types Packs/Day Years Used Date Smoking Tobacco: Never Smokeless Tobacco: Never Alcohol Use Standard Drinks/Week Comments No 0 (1 standard drink = 0.6 oz pur e alcohol) AUDIT-C Answer Date Recorded Q1: How often do you have a drink containing alc ohol? Monthly or less 12/10/2021 Q2: How many drinks containi ng alcohol do you have on a typical day when you are drinking? 1 or 2 12/10/2021 Q3: How often do you have si x or more drinks on one occasion? Never 12/10/2021 Comments Unknown Sex and Gender Information Value Date Recorded Sex Assigned at Female 03/19/2020 11:51 AM PUBLICITY WRITER Legal Sex Female 2:42 AM PUBLICITY WRITER Gender Identity Not on file Sexual Orientation Not on file documented as of this encounter Plan of Treatment Not on file documented as of this encounter Procedures Procedure Name Priority Date/Time Associated Diagnosis Comments SCAN - RADIOLOGY/IMAGING 12/09/2022 documented in this encounter Results * SCAN - RADIOLOGY/IMAGING (12/09/2022) Anatomical Region Laterality Modality Other us Provider Scanning Final Result documented in this encounter Visit Diagnoses Not on filedocumented in this encounter Care Teams Compliance Assistant Relationship Specialty Start Date End Date Mary Mckeon MD [address] [place] [address] PCP - General 06/24/17 Marion Covarrubias NP [address] [place] [address] Nurse Practitioner Medical Oncology 01/16/21 Homer Ccohran MD [address] [place] [address] Referring Physician Plastic Surgery 06/03/22 Mckinley Alba DO [address] [place] [address] Referring Physician Surgery 06/03/22 documented as of this encounter
--- OUTSIDE RECORDS SUMMARY | 2024-12-05 12:00 | XMS_ITS ---
Author Organization [facility] Address [address] [place] [address] Phone Care Team Providers Care Global President Name Role Phone Mary Mckeon MD Primary Care Provider Marion Covarrubias HOTEL SERVICES SALES REPRESENTATIVE Unavailable [phone] Homer Cochran MD Unavailable [phone] Mckinley Alba DO Unavailable [phone] Active Problems Problem Noted Date Diagnosed Date S/P silicone breast implant 12/15/2023 Osteopenia of necks of both femurs 11/30/2023 Overview (11/30/2023): Date Lumbar Spine T-score Left hip T-score Femoral neck T-score 9- -0.5 -0.2 08-14-2021 -0.6 -0.3 -1.4 - -2.1 -0.9 -1.4 Estrogen receptor positive 05/03/2021 jail (current) use of aromatase inhibitors 11/29/2015 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, estrogen receptor positive 09/24/2015 Cancer Staging:Clinical stage from 09/24/2015:Stage Unknown(rcT1c, cNX, cM0, G1, ER: Positive, GA: Positive, HER2: Negative, Oncotype DX score: 19) - Signed by Surjit Swartz MD on 09/19/2017 History of triple negative breast cancer 008 Current Treatment and Therapy Plans No current plan information found. Past Treatment and Therapy Plans Oncology Chemotherapy Treatment Plan Name Start Date Discontinue Date Treatment Medications Discontinue Reason Plan Provider Cycles Leuprolide 28 Day Cycles - Breast 09/19/2017 05/27/2022 leuprolide (LUPRON)leupro lide (monthly) (LUPRON) Therapy Complete Syed Jin MD PhD 57 of 68 cycles started Resolved Problems Problem Noted Date Diagnosed Date Resolved Date Abnormal mammogram of left breast 07/17/2022 12/09/2022 Encounter for screening mamm ogram for high-risk patient 02/10/2019 12/10/2021
--- OUTSIDE RECORDS SUMMARY | 2024-12-05 12:00 | XMS_ITS | Clinical Summary ---
Author Organization [facility] Address [address] [place] [address] Care Team Providers Care Steward/Stewardess Tourist Class Name Role Phone Mary Mckeon MD Primary Care Provider Baldev lorenzana Source Comments [facility],non-owned Affiliates and Associated Physician Practices is amultiple site organization consisting of ambulatory clinics and hospital sitesin [place], [place], [place] and [place]. This disclosure is being madepursuant to the Care Everywhere program and may not contain all information available regarding this patient. Last updated 18.[employer] Social History Tobacco Use Types Packs/Day Years Used Date Smoking Tobacco: Never Assessed Comments Unknown Sex and Gender Information Value Date Recorded Sex Assigned at Not on file Legal Sex Female 9:29 AM CDT Gender Identity Not on file Sexual Orientation Not on file Last Filed Vital Signs Vital Sign Reading Time Taken Comments Blood Pressure 142/82 04/30/2016 3:07 PM NURSING SERVICES MANAGER Pulse - - Temperature - - Respiratory Rate - - Oxygen Saturation - - Inhaled Oxygen Concentration - - Weight 67.6 kg (149 lb) 04/30/2016 3:07 PM NURSING SERVICES MANAGER Height 157.5 cm (5' 2) 04/30/2016 3:07 PM NURSING SERVICES MANAGER Body Mass Index 27.25 04/30/2016 3:07 PM NURSING SERVICES MANAGER Plan of Treatment Health Maintenance Due Date Last Done Comments COLOGUARD (AGES 45-75) - COL ON CA SCREENING 1965 COLON MONITORING 1965 COLONOSCOPY - COLON CA SCREENING 1965 CT COLONOGRAPHY - COLON CA SCREENING 1965 Colorectal Cancer Screening 1965 FIT - COLON CA SCREENING 1965 FLEX SIG - COLON CA SCREENING 1965 LIPID TESTING 1965 MAMMOGRAM 1965 HIV SCREENING 12/20/1978 HEPATITIS C SCREENING 12/16/1981 DTAP/TDAP/TD VACCINES (1 - Tdap) 12/20/1982 PNEUMOCOCCAL VACCINE 50+ (1 of 1 - PCV) 12/20/2013 ZOSTER VACCINE (1 of 2) 12/20/2013 COVID-19 VACCINE (1 - 2023-2 5 season) 2023 DEPRESSION SCREENING 04/20/2024 INFLUENZA VACCINE (#1) 2024 Respiratory Syncytial Virus (RSV) Vaccine Pt: or over 60 yrs (1 - 1-dose 75+ series) 12/20/2038 HEPATITIS B VACCINE Aged Out No longe r eligible based on patient's age to complete this topic HIB VACCINE Aged Out No longer eligi ble based on patient's age to complete this topic HPV VACCINE Aged Out No longer eligi ble based on patient's age to complete this topic MENINGOCOCCAL (Group B) VACC INE SHARED DECISION-MAKING Aged Out No longer eligibl e based on patient's age to complete this topic MENINGOCOCCAL GROUPS A/C/Y/W VACCINE Aged Out No longer eligible b ased on patient's age to complete this topic [place] [address] [address] [place] [address] Care Teams Steward/Stewardess Tourist Class Relationship Specialty Start Date End Date Mary Mckeon MD [address] [place] [address] PCP - General Family Medicine 11/12/15
--- OUTSIDE RECORDS SUMMARY | 2024-12-05 12:00 | XMS_ITS | Encounter Summary ---
Author Organization [facility] Address [address] [place] [address] Phone Care Team Providers Care Environmental Engineering Manager Name Role Phone Mary Mckeon MD Primary Care Provider Marion Covarrubias NP Unavailable [phone] Homer Cochran MD Unavailable [phone] Mckinley Alba DO Unavailable [phone] Encounter Details Date Type Department Care Team (Latest Contact Info) Description 08/19/2022 Orders Only [facility] Scanning, Provider [...] Sex Assigned at Female 03/19/2020 11:51 AM BIT SANDER Legal Sex Female 2:42 AM BIT SANDER Gender Identity Not on file Sexual Orientation Not on file documented as of this encounter Plan of Treatment Not on file documented as of this encounter Procedures Procedure Name Priority Date/Time Associated Diagnosis Comments SCAN - RADIOLOGY/IMAGING 08/19/2022 documented in this encounter Results * SCAN - RADIOLOGY/IMAGING (08/19/2022) Anatomical Region Laterality Modality Other us Provider Scanning Final Result documented in this encounter Visit Diagnoses Not on filedocumented in this encounter Care Teams Environmental Engineering Manager Relationship Specialty Start Date End Date Mary Mckeon MD [address] [place] [address] PCP - General 06/24/17 Marion Covarrubias NP [address] [place] [address] Nurse Practitioner Medical Oncology 01/16/21 Homer Cochran MD [address] [place] [address] Referring Physician Plastic Surgery 06/03/22 Mckinley Alba DO [address] [place] [address] Referring Physician Surgery 06/03/22 documented as of this encounter
--- OUTSIDE RECORDS SUMMARY | 2024-12-05 12:00 | XMS_ITS | Clinical Summary ---
Author Organization [facility] Address [address] [place] [address] Phone Care Team Providers Care Cake Wrapper Name Role Phone Mary Mckeon MD Primary Care Provider Marion Covarrubias MINE WEDGE SAWYER Unavailable [phone] Homer Cochran MD Unavailable [phone] Mckinley Alba DO Unavailable [phone] Allergies Active Allergy Reactions Criticality Noted Date Comments Cetirizine Swelling Medium 09/19/2017 Hydroxyzine Hcl Swelling Medium 09/19/2017 Iodine Unknown 09/15/2017 Ranitidine Swelling Medium 09/19/2017 Medications amLODIPine (NORVASC) 10 mg tablet 07/02/2017 Active multivit with min-folic acid 200 mcg tablet,chewable Take by mouth. Active cholecalciferol, vitamin D3, (VITAMIN D3 ORAL) Take 1,000 Int'l Units by mouth Active rosuvastatin (CRESTOR) 5 mg tablet Take 1 tablet (5 mg total) by mouth daily Active omega-3s/dha/epa /fish oil (OMEGA 3 ORAL) Take 180 mg by mouth daily Active anastrozole (ARIMIDEX) 1 mg tabletIndication s:Personal history of breast cancer TAKE 1 TABLET BY MOUTH EVERY DAY 90 tablet 3 11/26/2023 Active Active Problems Problem Noted Date Diagnosed Date S/P silicone breast implant 12/15/2023 Osteopenia of necks of both femurs 11/30/2023 Overview (11/30/2023): Date Lumbar Spine T-score Left hip T-score Femoral neck T-score 12-22-2017 -0.5 -0.2 08-14-2021 -0.6 -0.3 -1.4 8- -2.1 -0.9 -1.4 Estrogen receptor positive 05/03/2021 shelter (current) use of aromatase inhibitors 11/29/2015 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, estrogen receptor positive 09/24/2015 Cancer Staging:Clinical stage from 09/24/2015:Stage Unknown(rcT1c, cNX, cM0, G1, ER: Positive, [place]: Positive, HER2: Negative, Oncotype DX score: 19) - Signed by Surjit Swartz MD on 09/19/2017 History of triple negative breast cancer 008 Resolved Problems Problem Noted Date Diagnosed Date Resolved Date Abnormal mammogram of left breast 07/17/2022 12/09/2022 Encounter for screening mamm ogram for high-risk patient 02/10/2019 12/10/2021 Immunizations Immunization Administration Dates Next Due Influenza, Quadrivalent, Cha l Culture-based MDCK, Preservative Free, Antibiotic Free, Intramuscular 01/20/2019,02/01/2018 Influenza, Quadrivalent, Spl it, Preservative Free, Intramuscular 01/25/2020 Pfizer SARS-CoV-2 Monovalent Vaccination (12+ Yrs) PURPLE 08/30/2020,08/09/2020 Surgical History Surgery Date Site/Laterality Comments MASTECTOMY BREAST LUMPECTOMY BREAST RECONSTRUCTION BREAST BIOPSY COLONOSCOPY 03/17/2022 no polyps return 5 years FOOT SURGERY Bilateral Medical History Medical History Date Comments Hypertension Breast cancer (HCC) Encounter for screening mammogram for high-risk patient 02/10/2019 History of breast disorder in female 02/10/2019 Encounter for screening mammogram for high-risk patient 02/10/2019 Abnormal mammogram of left breast 07/17/2022 Family History Medical History Relation Name Comments No Known Problems Brother Colon cancer Father Colon cancer Father's Sister No Known Problems Maternal Grandmother Breast cancer Maternal cousin 1 1st cousi n Breast cancer Maternal cousin 2 1st cousi n Breast cancer Maternal cousin 3 2nd cousi n Breast cancer Maternal cousin 4 2nd cousi n Lung cancer Maternal cousin 5 smoker No Known Problems Mother Breast cancer Mother's Sister 1 Breast cancer Mother's Sister 2 Breast cancer Mother's Sister 3 Ovarian cancer Mother's Sister 4 Lung cancer Mother's Sister 5 smoker Diabetes Paternal Grandmother Heart disease Paternal Grandmother Hypertension Paternal Grandmother Relation Name Status Comments Brother Alive Father Father's Sister Maternal Grandmother Maternal cousin 1 Alive Maternal cousin 2 Alive Maternal cousin 3 Alive Maternal cousin 4 Alive Maternal cousin 5 Mother Alive Mother's Sister 1 Alive Mother's Sister 2 Alive Mother's Sister 3 Mother's Sister 4 Mother's Sister 5 Paternal Grandmother Social History Tobacco Use Types Packs/Day Years Used Date Smoking Tobacco: Never Smokeless Tobacco: Never Alcohol Use Standard Drinks/Week Comments No 0 (1 standard drink = 0.6 oz pur e alcohol) AUDIT-C Answer Date Recorded Frequency of Alcohol Consumption Not on file 06/16/2023 Q2: How many drinks containi ng alcohol do you have on a typical day when you are drinking? 1 or 2 06/16/2023 Q3: How often do you have si x or more drinks on one occasion? Less than monthly 06/16/2023 Comments Unknown Sex and Gender Information Value Date Recorded Sex Assigned at Female 03/19/2020 11:51 AM [employer]OUNT EX[employer]IVE [employer] Legal Sex Female 2:42 AM [employer]OUNT EXEC[employer]IVE [employer] Gender Identity Not on file Sexual Orientation Not on file Obstetrics History Last Filed Vital Signs Vital Sign Reading Time Taken Comments Blood Pressure 148/77 06/28/2024 10:58 AM CDT Pulse 71 06/28/2024 10:58 AM CDT Temperature 36.2 C (97.1 F) 06/28/2024 10:58 AM CDT Respiratory Rate 16 06/28/2024 10:58 AM CDT Oxygen Saturation 99% 06/28/2024 10:58 AM CDT Inhaled Oxygen Concentration - - Weight 65.3 kg (144 lb) 06/28/2024 10:58 AM CDT Height 160 cm (5' 3) 06/28/2024 10:58 AM CDT Body Mass Index 25.51 06/28/2024 10:58 AM CDT Plan of Treatment Health Maintenance Due Date Last Done Comments Breast Cancer Screening-Mammogram 1965 Cervical Cancer Screening 1965 Colon Cancer Screening-Colonoscopy 1965 Depression Screening 1965 Hepatitis C Screening 1965 DTaP/Tdap/Td Vaccine (1 - Tdap) 12/20/1974 Hepatitis B Screening 12/20/1981 Regular Well Visit/Exam 18-64 12/20/1981 Pneumococcal vaccine <65 (1 of 2 - PCV) 12/20/1982 Zoster Vaccine (1 of 2) 12/20/1982 Covid-19 Vaccine (3 - Pfizer risk series) 09/27/2020 08/30/2020, 08/09/2020 Influenza Vaccine (#1) 2024 , 01/20/2019, 02/01/2018 Insurance [facility] Care Teams Cake Wrapper Relationship Specialty Start Date End Date Mary Mckeon MD [address] [place] [address] PCP - General 06/24/17 Marion Covarrubias NP [address] [place] [id number] Nurse Practitioner Medical Oncology 01/16/21 Homer Cochran MD [address] [place] [address] Referring Physician Plastic Surgery 06/03/22 Mckinley Alba DO [address] [place] [address] Referring Physician Surgery 06/03/22
== END 2024-12-05 10:54 | disposition home or self-care (01) ==
LOC: ANHIMG 10:58
PROVIDERS: PCP Family Medicine
DX: Z12.31 Encounter for screening mammogram for malignant neoplasm of breast (principal); Z98.82 Breast implant status
CPT/HCPCS: 76641; 77063; 77067